=== PATIENT | female | born 1995 | race Caucasian/White ===

== ENCOUNTER 2024-03-17 18:15 | Emergency (ER) | payer BC, MEDICAID ==
[~2024-03-17] VITALS: Ht 167.6 cm; Wt 86.2 kg
[2024-03-17] MEDS: IV NS 0.9% 1,000 ML BAG IV ONE (19:57)
[2024-03-17 20:05] LABS: BASOPHILS % (AUTO) 0.5 % (0.0-2.0); EOSINOPHILS # (AUTO) 0.1 K/uL (0.0-0.7); EOSINOPHILS % (AUTO) 1.1 % (0.0-6.0); HEMATOCRIT 39 % (33-45); HEMOGLOBIN 12.8 g/dL (11.5-14.8); LYMPHOCYTES # (AUTO) 2.4 K/uL (0.8-4.8); MEAN CORPUSCULAR HEMOGLOBIN 28 PG (26.0-33.0); MEAN CORPUSCULAR HGB CONC 33 g/dl (31.0-36.0); MEAN CORPUSCULAR VOLUME 86 fL (82-100); MONOCYTES # (AUTO) 0.5 K/uL (0.1-1.30); MONOCYTES % (AUTO) 8.7 % (2.0-12.0); NEUTROPHILS # (AUTO) 2.4 K/uL (1.8-8.9); NEUTROPHILS % (AUTO) 44.7 % (43.0-81.0); PLATELET COUNT (AUTO) 241 K/uL (150-450); RED BLOOD CELL COUNT(AUTO) 4.56 MIL/uL (4.0-5.2); RED CELL DISTRIBUTION WIDTH 13.9 % (11.5-15.0); WHITE BLOOD COUNT (AUTO) 5.3 K/uL (4.3-11.0)
[2024-03-17 20:18] LABS: CALCIUM, SERUM 9.3 mg/dL (8.5-10.1); CARBON DIOXIDE 29 mmol/L (21-32); CHLORIDE 103 mmol/L (98-107); CREATININE 0.6 mg/dL (0.6-1.3); GLUCOSE 95 mg/dL (74-106); SODIUM SERUM 140 mmol/L (136-145); UREA NITROGEN, BLOOD 7 mg/dL (7-18)
[2024-03-17 20:22] LABS: INR 1.2 (0.91-1.10); PARTIAL THROMBOPLASTIN TIME 22.9 SEC (24.3-34.3); PROTHROMBIN TIME 12.6 SECS (9.2-11.1)
[2024-03-17 20:25] LABS: ALANINE AMINOTRANSFERASE 65 U/L (12-78); ALBUMIN 3.7 g/dL (3.4-5.0); ALKALINE PHOSPHATASE 43 U/L (46-116); ASPARTATE AMINOTRANSFERASE 18 U/L (15-37); BILIRUBIN,DIRECT 0.1 mg/dL (0.0-0.2); BILIRUBIN,TOTAL 0.5 mg/dL (0.2-1.0); TOTAL PROTEIN, SERUM 7.4 g/dL (6.4-8.2)
[2024-03-17] MEDS ORDERED: LIDO20SO13 PO (21:05)
[2024-03-17] MEDS ORDERED: PRED50TA PO (21:05)
[2024-03-17 21:13] VITALS: BP 112/69; TEMP 98.6; O2SAT 98
== END 2024-03-17 21:13 | disposition home or self-care (01) ==
LOC: ER 18:20
DX: R55 Syncope and collapse (principal); B27.90 Infectious mononucleosis, unspecified without complication; R16.1 Splenomegaly, not elsewhere classified; R10.2 Pelvic and perineal pain; Z79.1 Long term (current) use of non-steroidal anti-inflammatories (NSAID); Z79.899 Other long term (current) drug therapy; Z88.1 Allergy status to other antibiotic agents
CPT/HCPCS: 99284; 74176; 96360; 85025; 80048; 80076; 36415; 84484; 85730; 83880; 84702; J7030

== ENCOUNTER 2024-04-08 13:41 | Emergency (ER) | payer MEDICAID ==
[~2024-04-08] VITALS: Ht 167.6 cm; Wt 86.2 kg
[~2024-04-08 13:41] MED LIST: LIDO20SO13 PO; PRED50TA PO
[2024-04-08 18:01] VITALS: BP 128/85; TEMP 98.5; O2SAT 98
== END 2024-04-08 18:02 | disposition home or self-care (01) ==
LOC: ER 13:46
DX: S80.12XA Contusion of left lower leg, initial encounter (principal); Z88.6 Allergy status to analgesic agent; Z88.8 Allergy status to other drugs, medicaments and biological substances; W22.8XXA Striking against or struck by other objects, initial encounter; Y93.89 Activity, other specified; Y92.89 Other specified places as the place of occurrence of the external cause; Y99.8 Other external cause status
CPT/HCPCS: 73590-TC; 93971-TC